=== PATIENT | female | born 1960 | race Caucasian/White ===

== ENCOUNTER 2021-02-22 22:37 | Emergency (ER) | payer OTHER, SELFPAY ==
[2021-02-22 22:39] VITALS: BP 140/60; BP 140/80; PULSE 101; PULSE 103; RESP 16; TEMP 37.4; O2SAT 94; O2SAT 96; BMI 24.1
[2021-02-23] MEDS: Acetaminophen 325 MG TABLET 975 MG PO (00:10)
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
== END 2021-02-23 01:57 | disposition home or self-care (01) ==
PROVIDERS: Emergency Provider Student in an Organized Health Care Education/Training Program; PCP Internal Medicine
DX: F41.9 Anxiety disorder, unspecified (principal); S40.812A Abrasion of left upper arm, initial encounter; Y04.2XXA Assault by strike against or bumped into by another person, initial encounter; R51.9 Headache, unspecified; Y93.89 Activity, other specified; Y92.019 Unspecified place in single-family (private) house as the place of occurrence of the external cause; Y99.9 Unspecified external cause status
CPT/HCPCS: 99283